=== PATIENT | female | born 1990 | race Caucasian/White ===

== ENCOUNTER 2016-09-09 15:26 | Emergency (ER) | payer MEDICAID ==
[~2016-09-09] VITALS: Ht 167.6 cm; Wt 59.0 kg
[2016-09-09 15:36] VITALS: BP 134/77
== END 2016-09-09 16:26 | disposition home or self-care (01) ==
LOC: ER 15:28
DX: Z76.0 Encounter for issue of repeat prescription (principal); F41.9 Anxiety disorder, unspecified; F32.9 Major depressive disorder, single episode, unspecified
CPT/HCPCS: 99284; A4606; Z7610

== ENCOUNTER 2016-10-09 12:58 | Emergency (ER) | payer MEDICAID ==
[~2016-10-09] VITALS: Ht 165.1 cm; Wt 61.2 kg
[2016-10-09 14:49] VITALS: BP 120/80
== END 2016-10-09 14:51 | disposition home or self-care (01) ==
LOC: ER 12:59
DX: S63.616A Unspecified sprain of right little finger, initial encounter (principal); F41.9 Anxiety disorder, unspecified; F32.9 Major depressive disorder, single episode, unspecified; Z76.0 Encounter for issue of repeat prescription; X58.XXXA Exposure to other specified factors, initial encounter; Y93.9 Activity, unspecified; Y92.9 Unspecified place or not applicable; Y99.9 Unspecified external cause status
CPT/HCPCS: 73140; 99284; A4606; Z7610

== ENCOUNTER 2017-01-14 11:27 | Emergency (ER) | payer MEDICAID ==
[~2017-01-14] VITALS: Ht 165.1 cm; Wt 52.2 kg
--- NOTE | 2017-01-14 11:38 | NUR ---
PT BIB RA WITH [employer] C/O SI WITH PLAN TO USE ALCOHOL TO KILL SELF. DENIES HI. PT APPEARS ANXIOUS, HYPERVENTILATING, CRYING. ENCOURAGED SLOW DEEP BREATHING AND RELAXATION TECHNIQUES. DENIES PHYSICAL COMPLAINT. IN ER BED 14 ON MONITOR. WITH [employer] AT BEDSIDE.
--- NOTE | 2017-01-14 11:40 | NUR ---
PT PLACED ON 1 POINT RESTRAINT PER SI PROTOCOL
[2017-01-14 11:59] LABS: BASOPHILS # (AUTO) 0.3 /CMM (0.0-0.2); BASOPHILS % (AUTO) 1.9 % (0.0-2.0); EOSINOPHILS % (AUTO) 0.3 % (0.0-6.0); HEMATOCRIT 47 % (33-45); HEMOGLOBIN 16.4 g/dL (11.5-14.8); LYMPHOCYTES # (AUTO) 2.8 /CMM (0.8-4.8); LYMPHOCYTES % (AUTO) 19.6 % (20.0-44.0); MEAN CORPUSCULAR HEMOGLOBIN 32 PG (26.0-33.0); MEAN CORPUSCULAR HGB CONC 35 g/dl (31.0-36.0); MEAN CORPUSCULAR VOLUME 94 fL (82-100); MONOCYTES # (AUTO) 0.4 /CMM (0.1-1.30); MONOCYTES % (AUTO) 3.1 % (2.0-12.0); NEUTROPHILS # (AUTO) 10.9 /CMM (1.8-8.9); NEUTROPHILS % (AUTO) 75.1 % (43.0-81.0); PLATELET COUNT (AUTO) 350 /CMM (150-450); RDW COEFFICIENT OF VARIATION 11.9 (11.5-15.0); RED BLOOD CELL COUNT(AUTO) 5.07 MIL/uL (4.0-5.2); WHITE BLOOD COUNT (AUTO) 14.4 K/uL (4.3-11.0)
[2017-01-14 12:08] LABS: CALCIUM, SERUM 9.3 mg/dL (8.5-10.1); CREATININE 0.9 mg/dL (0.6-1.3); POTASSIUM 3.7 mmol/L (3.5-5.1)
--- NOTE | 2017-01-14 12:10 | NUR ---
PT NOW ATTEMPTING TO GET OUT OF BED, ASKING ME TO CALL HER DAD SO HE CAN PICK HER UP. STATES "I WAS JUST DRINKING TOO MUCH" AND DENYING SI. ON 1 POINT RESTRAINT PER SI PROTOCOL.
[2017-01-14 12:18] LABS: ALBUMIN 4.7 g/dL (3.4-5.0); BILIRUBIN,DIRECT 0.1 mg/dL (0.0-0.2); BILIRUBIN,TOTAL 0.4 mg/dL (0.2-1.0); SALICYLATE 1.3 mg/dL (2.8-20.0); TOTAL PROTEIN, SERUM 8.6 g/dL (6.4-8.2)
[2017-01-14] MEDS ORDERED: IV SET PRIMARY 1 EA INFUS.SET MC ONE (12:33)
[2017-01-14] MEDS ORDERED: IV NS 0.9% 1,000 ML ONE (12:33)
--- NOTE | 2017-01-14 12:46 | NUR ---
PT REMAINS EASILY AGITATED BUT CONSENTS TO IVF. IV PLACED, TOLERATED WELL.
[2017-01-14] MEDS ORDERED: IV NS 0.9% 1,000 ML BAG IV ONE (13:00)
--- NOTE | 2017-01-14 14:01 | NUR ---
PT MOVED TO ER BED 16 BECAUSE SHE WAS YELLING BACK AND FORTH WITH THE NEXT PT OVER WHILE IN BED 14. NOW RESTING CALMLY. PT AMBULATED TO RESTROOM WITH STEADY GAIT. UNABLE TO PROVIDE URINE SAMPLE AT THIS TIME. RESUMED 1 POINT RESTRAINT.
--- NOTE | 2017-01-14 17:35 | NUR ---
PT STOOD UP, STARTED YELLING AND DEMANDING TO HAVE HER BLOOD ALCOHOL LEVEL CHECKED. NOTIFIED. PT MOVED TO ER BED 21 FOR PRIVACY, D/T PT COMPLAINING ABOUT BEING "IN THE [facility], NOT EVEN IN MY OWN ROOM"
--- NOTE | 2017-01-14 17:38 | NUR ---
KAREN REBOLLAR RN FOR PSYCH EVAL ETA 1HR
--- NOTE | 2017-01-14 19:36 | NUR ---
Patient discharged to home in stable condition. Written and verbal after care instructions given. Patient verbalizes understanding of instruction. IV removed. Catheter intact and site benign. Pressure and 4x4 applied to site. No bleeding noted. AMBULATORY WITH STEADY GAIT. WITH RESOURCES FROM [facility].
[2017-01-14 19:37] VITALS: BP 130/66
== END 2017-01-14 19:38 | disposition home or self-care (01) ==
LOC: ER 11:28
DX: F10.129 Alcohol abuse with intoxication, unspecified (principal); F32.9 Major depressive disorder, single episode, unspecified; F41.9 Anxiety disorder, unspecified
CPT/HCPCS: 36415; 80048; 80076; 80329; 84703; 85025; 96360; 99284; A4606; G0480 ×2; J7030; Z7610; G6039-TC

== ENCOUNTER 2017-01-15 10:11 | Emergency (ER) | payer MEDICAID ==
[~2017-01-15] VITALS: Ht 165.1 cm; Wt 61.2 kg
[2017-01-15 10:57] LABS: BASOPHILS % (AUTO) 0.5 % (0.0-2.0); EOSINOPHILS # (AUTO) 0.1 /CMM (0.0-0.7); EOSINOPHILS % (AUTO) 1.2 % (0.0-6.0); HEMATOCRIT 41 % (33-45); HEMOGLOBIN 13.9 g/dL (11.5-14.8); LYMPHOCYTES # (AUTO) 1.7 /CMM (0.8-4.8); LYMPHOCYTES % (AUTO) 31.9 % (20.0-44.0); MEAN CORPUSCULAR HEMOGLOBIN 32 PG (26.0-33.0); MEAN CORPUSCULAR HGB CONC 34 g/dl (31.0-36.0); MEAN CORPUSCULAR VOLUME 94 fL (82-100); MONOCYTES # (AUTO) 0.3 /CMM (0.1-1.30); MONOCYTES % (AUTO) 6.4 % (2.0-12.0); NEUTROPHILS # (AUTO) 3.3 /CMM (1.8-8.9); PLATELET COUNT (AUTO) 256 /CMM (150-450); RDW COEFFICIENT OF VARIATION 12.1 (11.5-15.0); RED BLOOD CELL COUNT(AUTO) 4.38 MIL/uL (4.0-5.2); WHITE BLOOD COUNT (AUTO) 5.4 K/uL (4.3-11.0)
[2017-01-15 11:00] LABS: CALCIUM, SERUM 8.1 mg/dL (8.5-10.1); CREATININE 0.7 mg/dL (0.6-1.3); POTASSIUM 3.7 mmol/L (3.5-5.1)
[2017-01-15] MEDS ORDERED: IV NS 0.9% 1,000 ML BAG IV ONE (11:00)
[2017-01-15] MEDS ORDERED: Thiamine 100 MG in IV D5W 50 ML IV SCH (11:00)
[2017-01-15] MEDS ORDERED: Folic acid 1 MG in IV D5W 50 ML IV SCH (11:00)
[2017-01-15] MEDS ORDERED: IV SET PRIMARY PUMP SET 1 EA INFUS.SET MC ONE (11:04)
[2017-01-15] MEDS ORDERED: IV NS 0.9% 1,000 ML ONE (11:04)
[2017-01-15] MEDS ORDERED: IV SET PRIMARY 1 EA INFUS.SET MC ONE (11:04)
[2017-01-15 11:12] LABS: ALBUMIN 3.8 g/dL (3.4-5.0); BILIRUBIN,DIRECT 0.1 mg/dL (0.0-0.2); BILIRUBIN,TOTAL 0.4 mg/dL (0.2-1.0); TOTAL PROTEIN, SERUM 7.3 g/dL (6.4-8.2)
[2017-01-15 11:13] LABS: SALICYLATE 0.7 mg/dL (2.8-20.0)
--- NOTE | 2017-01-15 11:16 | NUR ---
PT BIB RA FOR ETOH INTOX. PT SMELLS OF ETOH AND ADMITS TO DRINKING. NAD NOTED. RESP EVEN UNLABORED. DENIES PHYSICAL COMPLAINT. IN ER BED 12 ON MONITOR.
--- NOTE | 2017-01-15 12:25 | NUR ---
CALLED FOR FOOD TRAY
--- NOTE | 2017-01-15 12:40 | NUR ---
PT GOT OUT OF BED, PULLED OUT IV, AND WALKED OVER TO ER BED 14 WHILE BLEEDING. PRESSURE DRESSING APPLIED. PT WAS UNCOOPERATIVE REGARDING GETTING INTO AND STAYING IN BED. 1 POINT RESTRAINT APPLIED FOR SAFETY.
--- NOTE | 2017-01-15 12:48 | NUR ---
PT STATES "I CALLED THE POL[employer] ON MYSELF BECAUSE I WAS WORRIED I WAS GOING TO KILL MYSELF BY DRINKING". NOTIFIED.
--- NOTE | 2017-01-15 12:53 | NUR ---
CALLED ART FOR PSYCH EVAL, HE TOLD ME TO CALL HIM BACK WHEN HER URINE IS BACK AND HE WILL BE HERE
[2017-01-15 13:00] LABS: APPEARANCE,URINE Clear (CLEAR); BILIRUBIN,URINE Negative (NEGATIVE); BLOOD, URINE Trace-intact Ery/uL (NEGATIVE); COLOR,URINE Yellow (YELLOW); KETONES,URINE Negative (NEGATIVE); LEUKOCYTE ESTERASE ,URINE Negative (NEGATIVE); NITRITE, URINE Negative (NEGATIVE); PROTEIN,URINE Negative (NEGATIVE); UGLUCOSE Negative (NEGATIVE); UROBILINOGEN,URINE 0.2 EU/dL (0.2)
[2017-01-15 13:03] LABS: ADD URINE CULTURE NO; BACTERIA,URINE Few /HPF (None Seen); SQUAMOUS EPITHELIAL CELL,UR Few /HPF (None Seen); WBC,URINE 0-2 /HPF (0-3)
[2017-01-15 13:07] LABS: CANNABINOID, URINE NEGATIVE (NEGATIVE); PHENCYCLIDINE SCREEN,URINE NEGATIVE (NEGATIVE)
--- NOTE | 2017-01-15 13:15 | NUR ---
CALLED BACK ART AND INFORMED HIM HER DRUG SCREEN IS NEGATIVE, HE SAID HE IS ON HIS WAY
--- NOTE | 2017-01-15 13:55 | NUR ---
ART AT BEDSIDE
--- NOTE | 2017-01-15 14:30 | NUR ---
AMBULATED TO RESTROOM WITH STEADY GAIT.
[2017-01-15 14:48] VITALS: BP 120/73
--- NOTE | 2017-01-15 14:48 | NUR ---
Patient discharged to home in stable condition. Written and verbal after care instructions given. Patient verbalizes understanding of instruction.
[2017-01-16] MEDS ORDERED: MULTIVITAMINS,THERAPEUTIC 1 UDTAB TABLET PO SCH (09:00)
== END 2017-01-15 14:48 | disposition home or self-care (01) ==
LOC: ER 10:12
DX: F10.229 Alcohol dependence with intoxication, unspecified (principal); F32.9 Major depressive disorder, single episode, unspecified; F41.9 Anxiety disorder, unspecified
CPT/HCPCS: 36415; 80048-TC; 80076-TC; 80305; 81000-TC; 85025-TC; A4606; G0480; G6039-TC; J3411; J3490; J7030; J7060; Z7610

== ENCOUNTER 2017-01-16 07:40 | Emergency (ER) | payer MEDICAID ==
[~2017-01-16] VITALS: Ht 177.8 cm; Wt 54.4 kg
[2017-01-16] MEDS ORDERED: IV SET PRIMARY PUMP SET 1 EA INFUS.SET MC ONE (08:18)
[2017-01-16] MEDS ORDERED: IV NS 0.9% 1,000 ML ONE (08:18)
[2017-01-16] MEDS ORDERED: LORAZEPAM INJ 2 MG/ML VIAL ONE (08:19)
[2017-01-16] MEDS ORDERED: LORAZEPAM 1 MG TABLET PO ONE (08:30)
[2017-01-16] MEDS: IV NS 0.9% 1,000 ML BAG IV ONE (08:36)
[2017-01-16] MEDS: LORAZEPAM INJ 2 MG/ML VIAL IV ONE (08:42)
--- NOTE | 2017-01-16 09:20 | NUR ---
PT AMBULATORY WITH STEADY GAIT
--- NOTE | 2017-01-16 09:20 | NUR ---
IV removed. Catheter intact and site benign. Pressure and 4x4 applied to site. No bleeding noted.
[2017-01-16 09:21] VITALS: BP 154/77
--- NOTE | 2017-01-16 09:21 | NUR ---
PT. VERBALIZED UNDERSTANDING OF AFTERCARE INSTRUCTIONS.Patient discharged to home in stable condition. Written and verbal after care instructions given. Patient verbalizes understanding of instruction.
== END 2017-01-16 09:24 | disposition home or self-care (01) ==
LOC: ER 07:41
DX: F41.9 Anxiety disorder, unspecified (principal); F10.129 Alcohol abuse with intoxication, unspecified; F32.9 Major depressive disorder, single episode, unspecified
CPT/HCPCS: A4606; J2060; J7030; Z7610

== ENCOUNTER 2017-06-17 15:11 | Emergency (ER) | payer MEDICAID ==
[~2017-06-17] VITALS: Ht 167.6 cm; Wt 72.6 kg
--- NOTE | 2017-06-17 15:11 | NUR ---
BIB RA WAS FOUND AT FRONT DOOR OF BURNING APT WITH ETOH NOTED ON BREATH, NAD NOTED, VSS, RESP EVEN AND UNLABORED, SKIN WARM AND DRY. PUT ON MONITOR AND HOSPITAL GOWN, WAITING FOR MD BURT.
[2017-06-17 16:28] LABS: BASOPHILS % (AUTO) 0.5 % (0.0-2.0); EOSINOPHILS # (AUTO) 0.1 /CMM (0.0-0.7); EOSINOPHILS % (AUTO) 2.1 % (0.0-6.0); HEMATOCRIT 41 % (33-45); HEMOGLOBIN 13.9 g/dL (11.5-14.8); LYMPHOCYTES # (AUTO) 1.3 /CMM (0.8-4.8); LYMPHOCYTES % (AUTO) 41.8 % (20.0-44.0); MEAN CORPUSCULAR HEMOGLOBIN 33 PG (26.0-33.0); MEAN CORPUSCULAR HGB CONC 34 g/dl (31.0-36.0); MEAN CORPUSCULAR VOLUME 95 fL (82-100); MONOCYTES # (AUTO) 0.3 /CMM (0.1-1.30); MONOCYTES % (AUTO) 8.3 % (2.0-12.0); NEUTROPHILS # (AUTO) 1.5 /CMM (1.8-8.9); NEUTROPHILS % (AUTO) 47.3 % (43.0-81.0); PLATELET COUNT (AUTO) 252 /CMM (150-450); RDW COEFFICIENT OF VARIATION 12.9 (11.5-15.0); RED BLOOD CELL COUNT(AUTO) 4.27 MIL/uL (4.0-5.2); WHITE BLOOD COUNT (AUTO) 3.2 K/uL (4.3-11.0)
[2017-06-17] MEDS ORDERED: IV NS 0.9% 1,000 ML BAG IV ONE (16:30)
[2017-06-17 16:41] LABS: CALCIUM, SERUM 7.8 mg/dL (8.5-10.1); CARBON DIOXIDE 28 mmol/L (21-32); CHLORIDE 112 mmol/L (98-107); CREATININE 0.6 mg/dL (0.6-1.3); GLUCOSE 87 mg/dL (74-106); POTASSIUM 3.6 mmol/L (3.5-5.1); SODIUM SERUM 147 mmol/L (136-145); UREA NITROGEN, BLOOD 11 mg/dL (7-18)
[2017-06-17 16:48] LABS: ALANINE AMINOTRANSFERASE 37 U/L (12-78); ALBUMIN 3.5 g/dL (3.4-5.0); ALCOHOL, BLOOD 466 mg/dL (0-0); ALKALINE PHOSPHATASE 49 U/L (46-116); ASPARTATE AMINOTRANSFERASE 47 U/L (15-37); BILIRUBIN,TOTAL 0.2 mg/dL (0.2-1.0); TOTAL PROTEIN, SERUM 6.9 g/dL (6.4-8.2)
[2017-06-17 16:49] LABS: ACETAMINOPHEN < 2 ug/ml (10-30); SALICYLATE 1.1 mg/dL (2.8-20.0)
--- NOTE | 2017-06-17 18:09 | NUR ---
URINE SAMPLE SENT TO LAB
--- NOTE | 2017-06-17 18:12 | NUR ---
Patient is resting comfortably in bed with eyes closed. Easily aroused. VSS
[2017-06-17 18:23] LABS: APPEARANCE,URINE Clear (CLEAR); BILIRUBIN,URINE Negative (NEGATIVE); BLOOD, URINE Large Ery/uL (NEGATIVE); COLOR,URINE Yellow (YELLOW); KETONES,URINE Negative (NEGATIVE); LEUKOCYTE ESTERASE ,URINE Negative (NEGATIVE); NITRITE, URINE Negative (NEGATIVE); PROTEIN,URINE Negative (NEGATIVE); UGLUCOSE Negative (NEGATIVE); UROBILINOGEN,URINE 0.2 EU/dL (0.2)
[2017-06-17 18:52] LABS: WBC,URINE 0-2 /HPF (0-3)
[2017-06-17 18:53] LABS: BACTERIA,URINE Few /HPF (None Seen); SQUAMOUS EPITHELIAL CELL,UR Many /HPF (None Seen); URINE AMORPHOUS URATE Few /HPF (None Seen)
--- NOTE | 2017-06-17 21:27 | NUR ---
CALLED ABHISHEK(FATHER) [phone], HE CANT COME TO PICK HER UP.
--- NOTE | 2017-06-17 23:45 | NUR ---
RECEIVED REPORT FROM PRIMARY NURSE FELIPE AND ASSUMED CARE AT THIS TIME. AAO X4. DENEIS ANY SX'S AT THIS TIME. DRINKING WATER. RESP EVEN AND UNLAORED. AWAITS SPONSOR TO PICK HER UP.
--- NOTE | 2017-06-18 00:31 | NUR ---
Patient discharged to home in stable condition. Written and verbal after care instructions given. Patient verbalizes understanding of instruction. IV removed. Catheter intact and site benign. Pressure and 4x4 applied to site. No bleeding noted. Ambulatory with a steady gait accompanied by sponsor.
[2017-06-18 00:34] VITALS: BP 118/78
== END 2017-06-18 00:34 | disposition home or self-care (01) ==
LOC: ER 15:13
DX: F10.129 Alcohol abuse with intoxication, unspecified (principal)
CPT/HCPCS: 36415; 80048; 80076; 80305; 80329; 81001; 84702; 85025; 96360; 99284; A4606; G0480 ×2; J7030; Z7610; 81000-TC